=== PATIENT | male | born 1965 | race Caucasian/White ===

== ENCOUNTER 2021-10-25 12:33 | Emergency (ER) | payer SELFPAY ==
[~2021-10-25] VITALS: Ht 172.7 cm; Wt 79.0 kg
[2021-10-25] MEDS ORDERED: HYDROCODONE/ACETAMINOPHEN 10/325MG TABLET PO ONE (14:00)
[2021-10-25] MEDS ORDERED: KETOROLAC 60MG/2ML VIAL IM ONE (14:00)
[2021-10-25 14:15] VITALS: BP 125/68
[2021-10-25] MEDS ORDERED: DICL75TA5 MT (14:48)
[2021-10-25] MEDS ORDERED: ACET650T37 MT (14:49)
[2021-10-25] MEDS ORDERED: CYCL10TA7 MT (14:49)
== END 2021-10-25 15:45 | disposition home or self-care (01) ==
LOC: ER 12:40
DX: M54.30 Sciatica, unspecified side (principal)
CPT/HCPCS: 73502; 96372; 99283; J1885

== ENCOUNTER 2021-10-26 06:20 | Emergency (ER) | payer SELFPAY ==
[~2021-10-26] VITALS: Ht 170.2 cm; Wt 99.0 kg
[~2021-10-26 06:20] MED LIST: ACET650T37 MT; CYCL10TA7 MT; DICL75TA5 MT
[2021-10-26] MEDS ORDERED: MORPHINE SULFATE 10 MG/ML CPJ IM ONE (07:15)
[2021-10-26 08:09] VITALS: BP 125/72
== END 2021-10-26 08:17 | disposition home or self-care (01) ==
LOC: ER 07:38
DX: M54.41 Lumbago with sciatica, right side (principal); R03.0 Elevated blood-pressure reading, without diagnosis of hypertension; E11.9 Type 2 diabetes mellitus without complications
CPT/HCPCS: 96372; 99283; J2270